=== PATIENT | female | born 1990 | race Caucasian/White ===

== ENCOUNTER 2016-11-02 17:40 | Emergency (ER) | payer SELFPAY ==
[~2016-11-02] VITALS: Ht 160 cm; Wt 52.0 kg
[2016-11-02 17:53] VITALS: Ht 160 cm; Wt 52.0 kg
[2016-11-02] MEDS ORDERED: LORA10CA PO (19:43)
--- NOTE | 2016-11-02 19:47 | ERD ---
ER Documentation Chief Complaint Date/Time DATE: 11/02/16 TIME: 19:43 Chief Complaint CHEST PAIN , SOB X 3 DAYS , 12 WEEKS PREG HPI This is a 26-year-old who is 12 weeks who complains of 2 days of runny nose with postnasal drainage and a dry cough with no fever no cramps no vaginal bleeding no back pain. No dysuria. She says her chest hurts in the anterior and posterior wall. She says it hurts when she coughs it hurts when she turns her to the deep breath. No short of breath no productive sputum no dizziness no palpitations. The pain is described as sharp better with rest ROS All systems reviewed and are negative except as per history of present illness. Medications Home Meds Active Scripts Loratadine* (Claritin*) 10 Mg Capsule, 10 MG PO DAILY, #14 CAP Prov:CHICHO BABB DO 11/02/16 Allergies Allergies: Coded Allergies: No Known Allergy (Unverified , 11/02/16) PMhx/Soc History of Surgery: No Anesthesia Reaction: No Hx Neurological Disorder: No Hx Respiratory Disorders: No Hx Cardiac Disorders: No Hx Psychiatric Problems: No Hx Miscellaneous Medical Probl: No Hx Alcohol Use: No Hx Substance Use: No Hx Tobacco Use: No FmHx Family History: No coronary disease Physical Exam Vitals Vital Signs Date Time Temp Pulse Resp B/P Pulse Ox O2 Delivery O2 Flow Rate FiO2 11/02/16 17:53 98.2 108 20 133/82 98 Physical Exam Const: Well-developed, well-nourished Head: Atraumatic, normocephalic Eyes: Normal Conjunctiva, PERRLA, EOMI, normal sclera, no nystagmus ENT: Normal External Ears, Nose and Mouth, moist mucus membranes. Neck: Full range of motion. No meningismus, no lymphadenopathy. Resp: Clear to auscultation bilaterally, no wheezing, rhonchi, rales, 100% reproducible chest wall pain to palpation to the anterior chest wall and the posterior rib cage as well. Pushing on the posterior rib cage will induce pain in the anterior ribs Cardio: Regular rate and rhythm, no murmurs, S1 S2 present Abd: Soft, non tender x 4, non distended. Normal bowel sounds, no guarding or rebound, no pulsitile abdominal masses or bruits Skin: No petechiae or rashes, no ecchymosis , no maculopapular rash Back: No midline or flank tenderness Ext: No cyanosis, or edema, FROM x 4, normal inspection, neurovascularly intact x 4 Neur: Awake and alert, STR 5/5 x 4, sensation intact x 4, no focal findings, cerebellum intact Psych: Normal Mood and Affect Procedures/MDM EKG: Rate/Rhythm: Sinus tachycardia heart rate 107 QRS, ST, QT: NORMAL [place], QRS, QT] Impression: NORMAL EKG Patient clearly has reproducible chest pain to palpation and with twisting of the trunk. I believe her pain is directly due to repetitive coughing and strained her ribs. Discussed with her home care and only to take Tylenol for pain. Departure Diagnosis: Primary Impression: URI (upper respiratory infection) URI type: unspecified viral URI Qualified Code: J06.9 - Viral upper respiratory tract infection Additional Impression: Strain of chest wall Encounter type: initial encounter Qualified Code: S29.011A - Strain of chest wall, initial encounter Condition: Stable Patient Instructions: Preventing Common Respiratory Infections, Chest Wall Strain Referrals: PHOEBE ARMSTRONG APOSTOLOS A. DO Nov 02, 2016 19:47
[2016-11-02 20:00] VITALS: BP 134/62; PULSE 106; RESP 20; TEMP 98.2
== END 2016-11-02 20:01 | disposition home or self-care (01) ==
LOC: FTE 17:40
DX: O99.511 Diseases of the respiratory system complicating pregnancy, first trimester (principal); J06.9 Acute upper respiratory infection, unspecified; O9A.211 Injury, poisoning and certain other consequences of external causes complicating pregnancy, first trimester; S29.011A Strain of muscle and tendon of front wall of thorax, initial encounter; R07.9 Chest pain, unspecified; X58.XXXA Exposure to other specified factors, initial encounter; Y92.9 Unspecified place or not applicable; Z3A.12 12 weeks gestation of pregnancy
CPT/HCPCS: 93005; 99283

== ENCOUNTER 2017-01-07 20:11 | Outpatient (CLI) | payer MEDICAID ==
[~2017-01-07] VITALS: Ht 160 cm; Wt 58.6 kg
[~2017-01-07 20:11] MED LIST: LORA10CA PO
[2017-01-07 20:22] VITALS: Ht 160 cm; Wt 58.6 kg
[2017-01-07] MEDS ORDERED: PRENAT PO (20:24)
[2017-01-07 20:33] VITALS: BP 128/65; PULSE 95; RESP 18
[2017-01-07] MEDS ORDERED: LACTATED RINGER'S 1,000 ML IV* SCH (21:00)
[2017-01-07] MEDS ORDERED: LACTATED RINGER'S 1,000 ML IV SCH (21:00)
[2017-01-07 22:32] LABS: ADD UMIC NO; URINE BILIRUBIN (Dip) NEGATIVE (NEGATIVE); URINE BLOOD (Dip) NEGATIVE (NEGATIVE); URINE COLOR LT. YELLOW (YELLOW); URINE KETONES (Dip) NEGATIVE (NEGATIVE); URINE LEUKOCYTE ESTERASE (Dip) NEGATIVE (NEGATIVE); URINE NITRITE (Dip) NEGATIVE (NEGATIVE); URINE TOTAL PROTEIN (Dip) NEGATIVE (NEGATIVE); URINE UROBILINOGEN (Dip) 0.2 E.U./dL (0.1-1.0)
--- NOTE | 2017-01-07 23:17 | RADRPT ---
PROCEDURE: Obstetrical ultrasound greater than 14 weeks CLINICAL INDICATION: labor TECHNIQUE: Real time sonographic imaging of the gravid uterus is performed transabdominally and mu ltiple static jones scale and Doppler images are submitted for review as are measurements. The image s are reviewed on the PACS. COMPARISON: No relevant exams are available FINDINGS: The cervical os is closed with a normal cervical length of 4.41 cm. There is a single living intrauterine gestation in breech presentation. The heart beat is est imated at 154 bpm. The measurements are as follows: BPD:5.03 cm HC:19.03 cm AC:15.97 cm FL:3.56 cm Estimated gestational age is 21 weeks 2 days. The estimated date of delivery is 05/18/2017. The estimated weight is 405 grams. Placenta is posterior and grade 0. There is no evidence of placenta previa or abruption. anatomic survey is performed and shows no abnormality, the three-vessel cord and cord insertio n are unremarkable. The amniotic fluid is normal, the maximum vertical pocket estimated at 5.77 cm. RPTAT:HJJR IMPRESSION: 1. Single viable intrauterine gestation estimated at 21 weeks of 2 days with the estimated date of d elivery 05/18/2017. 2. Cervical length is estimated at 4.41 cm. 3. Estimated weight of 405 g is below the 3rd percentile. 4. Posterior great 0 placenta without placenta previa or abruption. Physician Jignesh Date Time Electronically viewed and signed by Physician Jignesh on 01/07/2017 23:17 /
--- NOTE | 2017-01-07 23:28 | PN ---
Date/Time of Note Date/Time of Note DATE: 01/07/17 TIME: 22:54 OB Subjective Subjective Subjective 26 yo P2, h/o c/d x 2, c/o ctx, now feeling better OB Objective Objective Objective VS: nml Abdomen- gravid, n/t Sono- 21 wks gestation, cervical length 4.5cm, pos FH Abdomen: WNL Contractions on Admission: None OB Assessment/Plan Other Assessment: 26 yo P2 @ 21 wks, w abdominal pain, now resolved Other plan: patient is feeling better, not in PTL d/c home f/u w provider on Monday CHRISTIN RAMEY MD Jan 07, 2017 23:22
--- NOTE | 2017-01-08 00:21 | TRIAGE ---
OB Triage Datetime Report Generated by CPN: 01/08/2017 00:21 Datetime: 01/07/2017 23:33 Stage of : OB Triage Labor Evaluation Frequency: X1 Monitor Mode: External Duration (sec)2399: 40 Resting Tone [place]: Relaxed Pain Presence: None/Denies Pain Type: N/A Datetime: 01/07/2017 23:28 Stage of : OB Triage Datetime: 01/07/2017 22:30 Stage of : OB Triage Labor Evaluation Frequency: 3-8 Monitor Mode: External Duration (sec)2399: 40-80 Quality: Mild Resting Tone [place]: Relaxed Pain Assessment Pain Scale: 3 Pain Presence: Intermittent Pain Type: Cramping Pain Location: Abdomen Datetime: 01/07/2017 22:25 Stage of : OB Triage Datetime: 01/07/2017 22:14 Stage of : OB Triage Datetime: 01/07/2017 21:30 Stage of : OB Triage Labor Evaluation Frequency: 4-8 Monitor Mode: External Duration (sec)2399: 50-90 Quality: Mild Resting Tone [place]: Relaxed Pain Assessment Pain Scale: 5 Pain Presence: Intermittent Pain Type: Cramping Pain Location: Abdomen Pain Relief Measures: Comfort Measures Datetime: 01/07/2017 20:43 Stage of : OB Triage Datetime: 01/07/2017 20:33 Assessment Type: Triage Maternal Assessment Level of Consciousness: Fully Conscious DTR's/Clonus: DTRs 2+; No Clonus Headache: Generalized Blurred Vision: No Respiratory Effort: Unlabored Breath Sounds, Left: Clear and Equal Breath Sounds, Right: Clear and Equal Nausea/Vomiting: Denies RUQ Epigastric Pain: Denies Lower Extremities Edema: None Degree: None Upper Extremities Edema: None Degree: None Facial Edema: None Fall Risk Assessment History of Falling: (0) No Secondary Diagnosis: (15) Yes (Annotations: C/S X2 PTD X1 AT 34 WKS) Ambulatory Aid: (0) Bedrest/Nurse Assist IV Therapy: (0) No Gait: (0) Normal/Bedrest/Immobile Mental Status: (0) Oriented to Own Ability Fall Score: 15 Fall Risk Score Definition: No Risk: No action required Datetime: 01/07/2017 20:23 Monitor Mode: External Datetime: 01/07/2017 20:22 Heart Rate Monitor Mode: Doppler Comments: FHTs x 1 minute, audible from 137 -158 bts/min Datetime: 01/07/2017 20:20 EGA: 23.5 Datetime: 01/07/2017 20:15 Time of Arrival: 01/07/2017 20:00 Arrived By: Wheelchair Arrived From: Home Chief Complaint: Cramping since 1800 Contractions: Irregular Time Contractions Began: 01/07/2017 18:00 Rupture of Membranes: Denies Vaginal Bleeding: None Vaginal Discharge: Denies Recent Sexual Intercouse: Denies Abdominal Trauma: Not Applicable Patient Complaints: Cramping Provider Notified: RAMEY Initial Plan: VS, DOPPLER, TOCO, IV HYDRATION, EFW, JESSI MVP, CL
== END 2017-01-07 23:48 | disposition home or self-care (01) ==
LOC: OBT 20:11 → L-D 20:14 → OBT 23:48
PROVIDERS: ATTEND Obstetrics & Gynecology
DX: O60.02 Preterm labor without delivery, second trimester (principal); Z3A.23 23 weeks gestation of pregnancy
CPT/HCPCS: 76815; 76817; 81003; J7120; 36415; 96360; 96361; G0463

== ENCOUNTER 2017-03-10 20:47 | Outpatient (CLI) | payer MEDICAID ==
[~2017-03-10] VITALS: Ht 160 cm; Wt 62.3 kg
[~2017-03-10 20:47] MED LIST changes: -LORA10CA PO; +PRENAT PO
[2017-03-10 21:28] VITALS: BP 121/69; PULSE 88; RESP 18
[2017-03-10 21:46] LABS: ADD UMIC NO; URINE BILIRUBIN (Dip) NEGATIVE (NEGATIVE); URINE BLOOD (Dip) NEGATIVE (NEGATIVE); URINE COLOR LT. YELLOW (YELLOW); URINE KETONES (Dip) TRACE (NEGATIVE); URINE LEUKOCYTE ESTERASE (Dip) NEGATIVE (NEGATIVE); URINE NITRITE (Dip) NEGATIVE (NEGATIVE); URINE TOTAL PROTEIN (Dip) NEGATIVE (NEGATIVE); URINE UROBILINOGEN (Dip) 0.2 E.U./dL (0.1-1.0)
[2017-03-10 22:02] LABS: ADD SCAN DIFF NO
[2017-03-10 22:05] LABS: BASOPHIL # 0.1 10^3/ul (0.0-0.1); BASOPHILS % 0.5 % (0.0-2.0); EOSINOPHILS # 0.5 10^3/ul (0.0-0.5); EOSINOPHILS % 4.8 % (0.0-7.0); HEMOGLOBIN 12.3 g/dl (12.0-16.0); LYMPHOCYTES # 2.6 10^3/ul (0.8-2.9); LYMPHOCYTES % 23.8 % (15.0-51.0); MEAN CORPUSCULAR HEMOGLOBIN 32.6 pg (29.0-33.0); MEAN CORPUSCULAR HGB CONC 35.1 g/dl (32.0-37.0); MEAN CORPUSCULAR VOLUME 92.8 fl (82.0-101.0); MEAN PLATELET VOLUME 9.2 fl (7.4-10.4); MONOCYTES % 8.9 % (0.0-11.0); NEUTROPHIL # 6.6 10^3/ul (1.6-7.5); NEUTROPHILS % 61.2 % (39.0-77.0); PLATELET COUNT 266 10^3/UL (140-415); RED BLOOD COUNT 3.77 10^6/ul (4.20-5.40); RED CELL DISTRIBUTION WIDTH 12.8 % (11.5-14.5); WHITE BLOOD COUNT 10.8 10^3/ul (4.8-10.8)
--- NOTE | 2017-03-10 22:27 | RADRPT ---
PROCEDURE: Obstetrical ultrasound CLINICAL INDICATION: Pre-term labor. TECHNIQUE: Tuttle-scale sonographic images of the uterus and cervix. Transvaginal examination. COMPARISON: 01/07/2017 FINDINGS: The cervix is closed with a length of 4.9 cm. IMPRESSION: The cervix is closed with a length of 4.9 cm. RPTAT: AADD .Kodak Obrien MD, MD Date Time Electronically viewed and signed by .Kodak Obrien MD, on 03/10/2017 22:26 .B/
--- NOTE | 2017-03-10 22:27 | RADRPT ---
PROCEDURE: Obstetrical ultrasound. CLINICAL INDICATION: , evaluation. Pelvic pain. TECHNIQUE: Transabdominal sonographic images of the pelvis are obtained. COMPARISON: 01/07/2017 FINDINGS: Single intrauterine gestation. There is a cephalic presentation. Measurements were made in order to determine age. The results are as follows: BPD = 7.63 cm HC = 27.43 cm AC = 26.17 cm FL = 5.75 cm Heart rate = 165 beats per minute The placenta is fundal - posterior. There is no evidence for an abruption or placenta previa. Ovaries are not visualized. IMPRESSION: Single intrauterine gestation of approximately 30 weeks 2 days by ultrasound criteria. [place] estimated weight = 1534 g; 45 percentile for gestational age of 30 weeks 0 days. RPTAT: AADD .Kodak Obrien MD, Date Time Electronically viewed and signed by .Kodak Obrien MD, MD on 03/10/2017 22:27 .B/
--- NOTE | 2017-03-10 23:41 | RADRPT ---
PROCEDURE: OB ultrasound for biophysical profile CLINICAL INDICATION: Biophysical profile. . TECHNIQUE: Multiple sonographic images of the pelvis were obtained. Transabdominal views are obta ined. COMPARISON: OB ultrasound 01/07/2017 FINDINGS: Single intrauterine gestation. Presentation: Cephalic. Placenta: Posterior No evidence of placental abruption. No evidence of placenta previa. breathing movement = 2/2 tone = 2/2 motion = 2/2 JESSI = 2/2 JESSI = 15.8 cm heart rate: 165 beats per minute IMPRESSION: Single intrauterine gestation. Biophysical profile 05/30 RPTAT: AADD .Kodak Obrien MD, MD Date Time Electronically viewed and signed by .Kodak Obrien MD, on 03/10/2017 23:41 .B/
--- NOTE | 2017-03-11 00:13 | QN ---
Documentation Comment OB triage: 32+wks for r/o labor +FM No LOF No CTXs No VB Neg FFN CXL>4cm --->discharged with instructions -->clotrimazole vaginal cream given --->F/u with PMD EMERY LUCIANO M.D. March 11, 2017 00:13
--- NOTE | 2017-03-11 01:09 | TRIAGE ---
OB Triage Datetime Report Generated by CPN: 03/11/2017 01:09 Datetime: 03/10/2017 21:40 Stage of : OB Triage Labor Evaluation Frequency: 2-6 Monitor Mode: External Quality: Mild Pattern: Normal: <= 5 Contractions in 10 Minutes Resting Tone [place]: Relaxed Heart Rate FHR Baseline Rate: 145 Monitor Mode: External US FHR Baseline Changes: No Baseline Change Variability: Moderate 6-25 bpm Accelerations: 15X15 Decelerations: None Category: Category I Vaginal Exam Membrane Status: Intact Datetime: 03/10/2017 21:16 Time of Arrival: 03/10/2017 20:45 EGA: 32.4 Arrived By: Wheelchair Arrived From: Home Chief Complaint: w/ hx PTL and PTD at 34 wks to OB triage w/ c/o RLQ pain and UTI s/s Movement: Present Contractions: Occasional Time Contractions Began: 03/10/2017 11:00 Rupture of Membranes: Denies Vaginal Bleeding: None Vaginal Discharge: Denies Recent Sexual Intercouse: Denies Abdominal Trauma: Not Applicable Patient Complaints: Urinary Frequency; Pain on Urination Time Provider Notified: 03/10/2017 21:10 Provider Notified: Dr Bond Initial Plan: EFM, FFN, CVL,BPP,UA,CBC Datetime: 03/10/2017 21:14 Vaginal Exam Membrane Status: Intact Datetime: 03/10/2017 21:10 Stage of : OB Triage Monitor Mode: External Quality: Mild Pattern: Normal: <= 5 Contractions in 10 Minutes Resting Tone [place]: Relaxed Heart Rate FHR Baseline Rate: 150 Monitor Mode: External US FHR Baseline Changes: No Baseline Change Variability: Moderate 6-25 bpm Accelerations: 15X15 Decelerations: Variable Category: Category II Datetime: 03/10/2017 21:01 Stage of : OB Triage Maternal Assessment Level of Consciousness: Fully Conscious Headache: Denies Blurred Vision: No Respiratory Effort: Unlabored Nausea/Vomiting: Denies RUQ Epigastric Pain: Denies Facial Edema: None Labor Evaluation Frequency: placed Monitor Mode: External Resting Tone [place]: Relaxed Monitor Mode: External US Comments: FHT 150 Pain Assessment Pain Scale: 7 Pain Presence: Intermittent Pain Type: Cramping Pain Location: Abdomen Datetime: 01/07/2017 22:38 Stage of : OB Triage Datetime: 01/07/2017 20:33 Fall Risk Assessment Fall Score: 15 Fall Risk Score Definition: No Risk: No action required Datetime: 01/07/2017 20:20 EGA: 23.5
== END 2017-03-11 00:15 | disposition home or self-care (01) ==
LOC: OBT 20:47 → L-D 20:47 → OBT 03-11 00:15
PROVIDERS: ATTEND Obstetrics & Gynecology
DX: O26.893 Other specified pregnancy related conditions, third trimester (principal); Z3A.32 32 weeks gestation of pregnancy
CPT/HCPCS: 36415; 76817; 76818; 81003; 82731; 85025; G0463

== ENCOUNTER 2017-04-06 10:57 | Outpatient (CLI) | payer MEDICAID ==
[~2017-04-06] VITALS: Ht 157.5 cm; Wt 63.8 kg
[2017-04-06 11:30] VITALS: BP 116/59; PULSE 93; RESP 19; Ht 157.5 cm; Wt 63.8 kg
[2017-04-06] MEDS ORDERED: LACTATED RINGER'S 1,000 ML IV ONE (12:00)
[2017-04-06] MEDS ORDERED: TERBUTALINE 1 ML ONE (12:08)
[2017-04-06] MEDS ORDERED: TERBUTALINE 1 MG/ML INJ SC ONE (12:30)
--- NOTE | 2017-04-06 13:00 | RADRPT ---
PROCEDURE: OB ultrasound for biophysical profile CLINICAL INDICATION: Poor tone. TECHNIQUE: Multiple sonographic images of the pelvis were obtained. Transabdominal views of the g ravid uterus are available for review. The images were reviewed on a PACS workstation. COMPARISON: None FINDINGS: breathing movement = 2/2 tone = 2/2 motion = 2/2 JESSI = 2/2 JESSI = 16.0 cm Single live intrauterine with cardiac activity of 144 bpm. position is cephal ic. The placenta is posterior. IMPRESSION: 1. Single live intrauterine gestation. 2. Biophysical profile = 8/8. 3. JESSI = 16.0 cm. RPTAT: HH .Malena Hutchinson MD, MD Date Time Electronically viewed and signed by .Malena Hutchinson MD, on 04/06/2017 13:00 .G/
--- NOTE | 2017-04-06 13:28 | TRIAGE ---
OB Triage Datetime Report Generated by CPN: 04/06/2017 13:27 Datetime: 04/06/2017 13:20 Stage of : OB Triage Maternal Assessment Level of Consciousness: Fully Conscious DTR's/Clonus: DTRs 1+ Headache: Denies Breath Sounds, Left: Clear and Equal Breath Sounds, Right: Clear and Equal Nausea/Vomiting: Denies RUQ Epigastric Pain: Denies Labor Evaluation Frequency: NONE Monitor Mode: External Resting Tone [place]: Relaxed Heart Rate FHR Baseline Rate: 145 Monitor Mode: External [place] Variability: Moderate 6-25 bpm Accelerations: 15X15 Decelerations: None Pain Assessment Pain Scale: 0 Pain Presence: None/Denies Pain Type: N/A Pain Goal: 3 Vaginal Exam Membrane Status: Intact Datetime: 04/06/2017 13:00 Maternal Assessment Level of Consciousness: Fully Conscious DTR's/Clonus: DTRs 1+ Headache: Denies Blurred Vision: No Respiratory Effort: Unlabored Breath Sounds, Left: Clear and Equal Breath Sounds, Right: Clear and Equal Nausea/Vomiting: Denies RUQ Epigastric Pain: Denies Facial Edema: None Labor Evaluation Frequency: NONE Monitor Mode: External Resting Tone [place]: Relaxed Heart Rate FHR Baseline Rate: 145 Monitor Mode: External [place] Variability: Moderate 6-25 bpm Accelerations: 15X15 Decelerations: None Category: Category I Pain Assessment Pain Scale: 0 Pain Presence: None/Denies Pain Type: N/A Pain Goal: 3 Vaginal Exam Membrane Status: Intact Datetime: 04/06/2017 12:00 Stage of : OB Triage Maternal Assessment Level of Consciousness: Fully Conscious DTR's/Clonus: DTRs 1+ Headache: Denies Breath Sounds, Left: Clear and Equal Breath Sounds, Right: Clear and Equal Nausea/Vomiting: Denies RUQ Epigastric Pain: Denies Labor Evaluation Frequency: 2-5 Monitor Mode: External Duration (sec)2399: 40-60 Quality: Mild Pattern: Normal: <= 5 Contractions in 10 Minutes Resting Tone [place]: Relaxed Heart Rate FHR Baseline Rate: 140 Monitor Mode: External [place] Variability: Moderate 6-25 bpm Accelerations: 15X15 Decelerations: None Category: Category I Pain Assessment Pain Scale: 4 Pain Presence: Intermittent Pain Type: Contraction Pain Location: Back Pain Goal: 3 Pain Relief Measures: Comfort Measures Vaginal Exam Membrane Status: Intact Datetime: 04/06/2017 11:42 Maternal Assessment Level of Consciousness: Fully Conscious DTR's/Clonus: DTRs 1+ Headache: Denies Blurred Vision: No Respiratory Effort: Unlabored Breath Sounds, Left: Clear and Equal Breath Sounds, Right: Clear and Equal Nausea/Vomiting: Denies RUQ Epigastric Pain: Denies Facial Edema: None Labor Evaluation Frequency: 1-5 Monitor Mode: External Duration (sec)2399: 40-60 Quality: Mild Pattern: Normal: <= 5 Contractions in 10 Minutes Resting Tone [place]: Relaxed Heart Rate FHR Baseline Rate: 140 Monitor Mode: External [place] Variability: Moderate 6-25 bpm Accelerations: 15X15 Decelerations: None Category: Category I Pain Assessment Pain Scale: 6 Pain Presence: Intermittent Pain Type: Contraction Pain Location: Back Pain Goal: 3 Pain Relief Measures: Comfort Measures Vaginal Exam Membrane Status: Intact Datetime: 04/06/2017 11:31 Maternal Assessment Level of Consciousness: Fully Conscious DTR's/Clonus: DTRs 1+ Headache: Denies Blurred Vision: No Respiratory Effort: Unlabored Breath Sounds, Left: Clear and Equal Breath Sounds, Right: Clear and Equal Nausea/Vomiting: Denies RUQ Epigastric Pain: Denies Facial Edema: None Labor Evaluation Frequency: 1-5 Monitor Mode: External Duration (sec)2399: 40-70 Quality: Mild Pattern: Normal: <= 5 Contractions in 10 Minutes Resting Tone [place]: Relaxed Heart Rate FHR Baseline Rate: 135 Monitor Mode: External [place] Variability: Moderate 6-25 bpm Accelerations: 15X15 Decelerations: None Category: Category I Pain Assessment Pain Scale: 6 Pain Presence: Intermittent Pain Type: Contraction Pain Location: Back Pain Goal: 3 Pain Relief Measures: Pain Medication Given Vaginal Exam Membrane Status: Intact Datetime: 04/06/2017 10:53 Time of Arrival: 04/06/2017 10:53 EGA: 36.3 Arrived By: Ambulatory Arrived From: Office Chief Complaint: PT CAME IN C/O UC'S SINCE MONDAY AM Movement: Present Contractions: Denies/Absent Rupture of Membranes: Denies Vaginal Discharge: Denies Recent Sexual Intercouse: Denies Abdominal Trauma: Not Applicable Additional Patient Complaints: MONITOR Time Provider Notified: 04/06/2017 11:15 Provider Notified: [facility] Initial Plan: MONITOR, VE, IV HYDRATION, TERBUTALINE AND BPP Datetime: 03/11/2017 00:08 Stage of : OB Triage Datetime: 03/11/2017 00:00 Stage of : OB Triage Monitor Mode: External Quality: Mild Pattern: Normal: <= 5 Contractions in 10 Minutes Resting Tone [place]: Relaxed Heart Rate FHR Baseline Rate: 140 Monitor Mode: External US FHR Baseline Changes: No Baseline Change Variability: Moderate 6-25 bpm Accelerations: 15X15 Decelerations: None Category: Category I Datetime: 03/10/2017 23:23 Monitor Mode: External Quality: Mild Pattern: Normal: <= 5 Contractions in 10 Minutes Resting Tone [place]: Relaxed Heart Rate FHR Baseline Rate: 135 Monitor Mode: External US FHR Baseline Changes: No Baseline Change Variability: Moderate 6-25 bpm Accelerations: 15X15 Decelerations: None Category: Category I Datetime: 03/10/2017 22:30 Stage of : OB Triage Heart Rate FHR Baseline Rate: 140 Monitor Mode: External US FHR Baseline Changes: No Baseline Change Variability: Moderate 6-25 bpm Accelerations: 15X15 Decelerations: None Category: Category I Datetime: 03/10/2017 21:16 EGA: 32.4 Datetime: 01/07/2017 20:33 Fall Risk Assessment Fall Score: 15 Fall Risk Score Definition: No Risk: No action required Datetime: 01/07/2017 20:20 EGA: 23.5
--- NOTE | 2017-04-06 14:08 | PN ---
Triage Information Date/Time Weeks of Gestation 3 para 2 at 36.3 days of gestation who presents with contractions : 3 Para: 2 Diabetes: none Hypertention: none Additional information R/O PTL Objective Vital Signs Date Time Temp Pulse Resp B/P Pulse Ox O2 Delivery O2 Flow Rate FiO2 04/06/17 11:30 98.4 93 19 116/59 99 Room Air Heart Rate: 140's Heart Rate Comments reactive Contractions: >10 Minutes Apart Exam cervix closed Results/Medications Imaging Results PROCEDURE: OB ultrasound for biophysical profile CLINICAL INDICATION: Poor tone. TECHNIQUE: Multiple sonographic images of the pelvis were obtained. Transabdominal views of the gravid uterus are available for review. The images were reviewed on a PACS workstation. COMPARISON: None FINDINGS: breathing movement = 2/2 tone = 2/2 motion = 2/2 JESSI = 2/2 JESSI = 16.0 cm Single live intrauterine with cardiac activity of 144 bpm. position is cephalic. The placenta is posterior. IMPRESSION: 1. Single live intrauterine gestation. 2. Biophysical profile = 8/8. 3. JESSI = 16.0 cm. RPTAT: HH .Malena Hutchinson MD, MD Date Time Electronically viewed and signed by .Malena Hutchinson MD, MD on 04/06/2017 13 :00 .G/ CC: VENUS SURESH MD Assessment/Plan Patient received IV fluid Status post terbutaline 1 dose BPP and JESSI wnl DC home today Patient should return for NST and biophysical profile within 2 days MARLON DORAN MD Apr 06, 2017 14:08
[2017-04-07] MEDS ORDERED: PROG100C5 VAGINAL (19:05)
== END 2017-04-06 13:30 | disposition home or self-care (01) ==
LOC: OBT 10:57 → L-D 10:57 → OBT 13:30
PROVIDERS: ATTEND Obstetrics & Gynecology
DX: O62.9 Abnormality of forces of labor, unspecified (principal); Z3A.36 36 weeks gestation of pregnancy
CPT/HCPCS: 36415; 76818; 96372; J3105; J7120; Z7500; G0463

== ENCOUNTER 2017-04-07 18:36 | Outpatient (CLI) | payer MEDICAID ==
[~2017-04-07] VITALS: Ht 158.8 cm; Wt 64.0 kg
[2017-04-07 19:00] VITALS: BP 107/60; PULSE 96; RESP 18
[2017-04-07] MEDS ORDERED: PROG100C5 VAGINAL (19:05)
[2017-04-07] MEDS ORDERED: TERBUTALINE 1 ML ONE (19:58)
[2017-04-07] MEDS ORDERED: LACTATED RINGER'S 1,000 ML IV ONE (20:00)
[2017-04-07] MEDS ORDERED: TERBUTALINE 1 MG/ML INJ SC ONE (20:00)
[2017-04-07] MEDS ORDERED: LACTATED RINGER'S 1,000 ML IV SCH (20:00)
--- NOTE | 2017-04-07 23:04 | QN ---
Documentation Comment iup 34 weeks co ucx vss exam wnl catr I tracing a/p iup 34 weeks false labor dc [place] AL BROWNLEE MD Apr 07, 2017 23:04
--- NOTE | 2017-04-08 08:09 | TRIAGE ---
OB Triage Datetime Report Generated by CPN: 04/08/2017 08:08 Datetime: 04/07/2017 19:09 Labor Evaluation Frequency: 3-6 Monitor Mode: External Duration (sec)2399: 50-150 Quality: Mild Pattern: Normal: <= 5 Contractions in 10 Minutes Resting Tone [place]: Relaxed Heart Rate FHR Baseline Rate: 145 Monitor Mode: External US FHR Baseline Changes: No Baseline Change Variability: Moderate 6-25 bpm Accelerations: 15X15 Decelerations: Variable Datetime: 04/07/2017 19:08 Pain Assessment Pain Scale: 8 Pain Presence: Intermittent Pain Type: Contraction Pain Location: Abdomen Datetime: 04/07/2017 18:56 Time of Arrival: 04/07/2017 18:33 EGA: 34.2 Arrived By: Ambulatory Arrived From: Home Chief Complaint: CONTRACTIONS, STARTING AT 0900, 5/HOUR, PAIN LEVEL 6/10 Movement: Present Contractions: Regular Time Contractions Began: 04/07/2017 09:00 Contractions: 5 PER HOUR Rupture of Membranes: Denies Vaginal Bleeding: None Vaginal Discharge: Denies Abdominal Trauma: Not Applicable Patient Complaints: Contractions Time Provider Notified: 04/07/2017 19:45 Provider Notified: Dr Loredo Initial Plan: EFM x2 Datetime: 04/07/2017 18:51 Stage of : OB Triage Assessment Type: Triage Maternal Assessment Level of Consciousness: Fully Conscious Headache: Denies Blurred Vision: No Respiratory Effort: Unlabored; Regular Rhythm; Equal Expansion Breath Sounds, Left: Clear and Equal Breath Sounds, Right: Clear and Equal Nausea/Vomiting: Denies RUQ Epigastric Pain: Denies Lower Extremities Edema: None Degree: None Upper Extremities Edema: None Degree: None Facial Edema: None Temperature Route: Oral Fall Risk Assessment History of Falling: (0) No Secondary Diagnosis: (0) No Ambulatory Aid: (0) Bedrest/Nurse Assist IV Therapy: (0) No Gait: (0) Normal/Bedrest/Immobile Mental Status: (0) Oriented to Own Ability Fall Score: 0 Fall Risk Score Definition: No Risk: No action required Pain Assessment Pain Scale: 6 Pain Presence: Intermittent Pain Type: Contraction Pain Location: Abdomen Datetime: 04/06/2017 10:53 EGA: 34.1 Datetime: 03/10/2017 21:16 EGA: 30.2 Datetime: 01/07/2017 20:33 Fall Score: 15 Fall Risk Score Definition: No Risk: No action required Datetime: 01/07/2017 20:20 EGA: 21.3
== END 2017-04-07 22:20 | disposition home or self-care (01) ==
LOC: OBT 18:36 → L-D 18:37 → OBT 22:20
PROVIDERS: ATTEND Obstetrics & Gynecology
DX: O47.03 False labor before 37 completed weeks of gestation, third trimester (principal); Z3A.34 34 weeks gestation of pregnancy
CPT/HCPCS: 36415; 96360; 96361; 96372; J3105; J7120; Z7500; G0463

== ENCOUNTER 2017-04-12 18:16 | Outpatient (CLI) | payer MEDICAID ==
[~2017-04-12] VITALS: Ht 157.5 cm; Wt 64.3 kg
[~2017-04-12 18:16] MED LIST changes: +PROG100C5 VAGINAL
[2017-04-12 18:42] VITALS: Ht 157.5 cm; Wt 64.3 kg
[2017-04-12 18:43] VITALS: BP 114/67; PULSE 94; RESP 18
[2017-04-12] MEDS ORDERED: LACTATED RINGER'S 1,000 ML IV* SCH (19:00)
[2017-04-12] MEDS ORDERED: TERBUTALINE 1 MG/ML INJ SC ONE ×2 (19:00→21:00)
[2017-04-12 20:13] LABS: ADD SCAN DIFF NO
[2017-04-12 20:16] LABS: BASOPHILS % 0.4 % (0.0-2.0); EOSINOPHILS # 0.5 10^3/ul (0.0-0.5); EOSINOPHILS % 5.1 % (0.0-7.0); HEMATOCRIT 35.8 % (37.0-47.0); HEMOGLOBIN 12.4 g/dl (12.0-16.0); LYMPHOCYTES # 2.1 10^3/ul (0.8-2.9); LYMPHOCYTES % 22.1 % (15.0-51.0); MEAN CORPUSCULAR HEMOGLOBIN 31.9 pg (29.0-33.0); MEAN CORPUSCULAR HGB CONC 34.6 g/dl (32.0-37.0); MEAN PLATELET VOLUME 9.9 fl (7.4-10.4); MONOCYTE # 0.8 10^3/ul (0.3-0.9); MONOCYTES % 8.7 % (0.0-11.0); NEUTROPHIL # 6.1 10^3/ul (1.6-7.5); NEUTROPHILS % 62.8 % (39.0-77.0); PLATELET COUNT 303 10^3/UL (140-415); RED BLOOD COUNT 3.89 10^6/ul (4.20-5.40); RED CELL DISTRIBUTION WIDTH 13.1 % (11.5-14.5); WHITE BLOOD COUNT 9.7 10^3/ul (4.8-10.8)
[2017-04-12 20:36] LABS: PARTIAL THROMBOPLASTIN TIME 24.7 Sec (25.0-35.0); PROTIME 13.2 Sec (12.2-14.2)
--- NOTE | 2017-04-12 22:27 | PN ---
Triage Information Date/Time Weeks of Gestation Patient is 3 para 2 at 35 weeks of gestation with history of 2 prior C- sections (History of delivery 1) She presents with contractions Patient has been on progesterone daily for history of delivery : 3 Para: 2 Diabetes: none Hypertention: none Objective Vital Signs Date Time Temp Pulse Resp B/P Pulse Ox O2 Delivery O2 Flow Rate FiO2 04/12/17 18:43 98.7 94 18 114/67 96 Room Air Heart Rate: 140's Heart Rate Comments Reactive Contractions: 6-10 Minutes Apart Exam Cervix per nurse closed Results/Medications Result Diagram: 04/12/171914 Results 24 hrs Laboratory Tests Test 04/12/17 19:15 White Blood Count 9.7 Red Blood Count 3.89 L Hemoglobin 12.4 Hematocrit 35.8 L Mean Corpuscular Volume 92.0 Mean Corpuscular Hemoglobin 31.9 Mean Corpuscular Hemoglobin Concent 34.6 Red Cell Distribution Width 13.1 Platelet Count 303 Mean Platelet Volume 9.9 Neutrophils % 62.8 Lymphocytes % 22.1 Monocytes % 8.7 Eosinophils % 5.1 Basophils % 0.4 Nucleated Red Blood Cells % 0.0 Neutrophils # 6.1 Lymphocytes # 2.1 Monocytes # 0.8 Eosinophils # 0.5 Basophils # 0.0 Nucleated Red Blood Cells # 0.0 Prothrombin Time 13.2 Prothrombin Time Ratio 1.0 INR International Normalized Ratio 1.00 Activated Partial Thromboplast Time 24.7 L Medications Current Medications Lactated Ringer's (Lr) 1,000 ml @ 125 mls/hr Q8H IV* Last administered on 04/12t 19:15; Admin Dose 125 MLS/HR; Start 04/12/17 at 19:00 Assessment/Plan Patient had 35 weeks of gestation with contractions IV fluids and terbutaline was given Patient is no longer oscar Will be discharged home Patient should follow-up with [facility] in 2-3 days MARLON DORAN MD Apr 12, 2017 22:27
--- NOTE | 2017-04-12 22:33 | TRIAGE ---
OB Triage Datetime Report Generated by CPN: 04/12/2017 22:33 Datetime: 04/12/2017 22:00 Stage of : OB Triage Labor Evaluation Frequency: X2/HR Monitor Mode: External Duration (sec)2399: 60-120 Quality: Moderate Pattern: Normal: <= 5 Contractions in 10 Minutes Resting Tone [place]: Relaxed Heart Rate FHR Baseline Rate: 135 Monitor Mode: External US Variability: Moderate 6-25 bpm Accelerations: 15X15 Decelerations: None Category: Category I Pain Presence: None/Denies Datetime: 04/12/2017 21:15 Stage of : OB Triage Labor Evaluation Frequency: X2/HR Monitor Mode: External Duration (sec)2399: 60-120 Quality: Moderate Pattern: Normal: <= 5 Contractions in 10 Minutes Resting Tone [place]: Relaxed Heart Rate FHR Baseline Rate: 135 Monitor Mode: External US Variability: Moderate 6-25 bpm Accelerations: 15X15 Decelerations: None Category: Category I Pain Assessment Pain Scale: 3 Pain Presence: Intermittent Pain Type: Cramping Pain Location: Abdomen Pain Relief Measures: Comfort Measures Datetime: 04/12/2017 20:15 Stage of : OB Triage Labor Evaluation Frequency: X2/HR Monitor Mode: External Duration (sec)2399: 60-120 Quality: Moderate Pattern: Normal: <= 5 Contractions in 10 Minutes Resting Tone [place]: Relaxed Heart Rate FHR Baseline Rate: 130 Monitor Mode: External US Variability: Moderate 6-25 bpm Accelerations: 15X15 Decelerations: None Category: Category I Pain Assessment Pain Scale: 3 Pain Presence: Intermittent Pain Type: Cramping Pain Location: Abdomen Pain Relief Measures: Comfort Measures Datetime: 04/12/2017 19:15 Stage of : OB Triage Temperature Route: Oral Labor Evaluation Frequency: 3-7 Monitor Mode: External Duration (sec)2399: 60-180 Quality: Moderate Pattern: Normal: <= 5 Contractions in 10 Minutes Resting Tone [place]: Relaxed Heart Rate FHR Baseline Rate: 135 Monitor Mode: External US Variability: Moderate 6-25 bpm Accelerations: 15X15 Decelerations: None Category: Category I Pain Assessment Pain Scale: 7 Pain Presence: Intermittent Pain Type: Cramping Pain Location: Abdomen Pain Relief Measures: Comfort Measures Datetime: 04/12/2017 18:48 Vaginal Exam Dilatation (cms): 0.0 Exam By: KHEMANI Datetime: 04/12/2017 18:40 Assessment Type: Triage Maternal Assessment Level of Consciousness: Fully Conscious DTR's/Clonus: DTRs 2+; No Clonus Headache: Denies Blurred Vision: No Respiratory Effort: Unlabored; Regular Rhythm; Equal Expansion Breath Sounds, Left: Clear and Equal Breath Sounds, Right: Clear and Equal Nausea/Vomiting: Denies RUQ Epigastric Pain: Denies Lower Extremities Edema: None Degree: None Upper Extremities Edema: None Degree: None Facial Edema: None Fall Risk Assessment History of Falling: (0) No Secondary Diagnosis: (0) No Ambulatory Aid: (0) Bedrest/Nurse Assist IV Therapy: (0) No Gait: (0) Normal/Bedrest/Immobile Mental Status: (0) Oriented to Own Ability Fall Score: 0 Fall Risk Score Definition: No Risk: No action required Datetime: 04/12/2017 18:38 Time of Arrival: 04/12/2017 18:15 EGA: 35.0 Arrived By: Ambulatory Arrived From: Home Chief Complaint: C/O UC'S Movement: Present Contractions: Denies/Absent Time Contractions Began: 04/12/2017 07:00 Rupture of Membranes: Denies Vaginal Bleeding: None Vaginal Discharge: Denies Recent Sexual Intercouse: Denies Abdominal Trauma: Not Applicable Patient Complaints: Contractions; Cramping; Back Pain Time Provider Notified: 04/12/2017 18:56 Provider Notified: DEMETRICE Initial Plan: EFM, SVE, IV HYDRATION, NPO Datetime: 04/12/2017 18:36 Monitor Mode: External Monitor Mode: External US Datetime: 04/07/2017 21:59 Stage of : OB Triage Monitor Mode: External Quality: Mild Pattern: Normal: <= 5 Contractions in 10 Minutes Resting Tone [place]: Relaxed Heart Rate FHR Baseline Rate: 140 Monitor Mode: External US FHR Baseline Changes: No Baseline Change Variability: Moderate 6-25 bpm Accelerations: 15X15 Decelerations: None Category: Category I Pain Assessment Pain Scale: 0 Pain Presence: None/Denies Pain Type: N/A Datetime: 04/07/2017 20:54 Stage of : OB Triage Quality: Mild Pattern: Normal: <= 5 Contractions in 10 Minutes Resting Tone [place]: Relaxed Pain Assessment Pain Scale: 2 Pain Presence: Intermittent Pain Location: Abdomen Datetime: 04/07/2017 20:11 Stage of : OB Triage Monitor Mode: External Quality: Moderate Pattern: Normal: <= 5 Contractions in 10 Minutes Resting Tone [place]: Relaxed Heart Rate FHR Baseline Rate: 135 Monitor Mode: External US FHR Baseline Changes: No Baseline Change Variability: Moderate 6-25 bpm Accelerations: 15X15 Decelerations: None Category: Category I Datetime: 04/07/2017 19:45 Stage of : OB Triage Labor Evaluation Frequency: 2-5 Monitor Mode: External Duration (sec)2399: 60-100 Quality: Moderate Pattern: Normal: <= 5 Contractions in 10 Minutes Resting Tone [place]: Relaxed Heart Rate FHR Baseline Rate: 140 Monitor Mode: External US FHR Baseline Changes: No Baseline Change Variability: Moderate 6-25 bpm Accelerations: 15X15 Decelerations: None Category: Category I Datetime: 04/07/2017 18:56 EGA: 34.2 Datetime: 04/07/2017 18:51 Fall Score: 0 Fall Risk Score Definition: No Risk: No action required Datetime: 04/06/2017 10:53 EGA: 34.1 Datetime: 03/10/2017 21:16 EGA: 30.2 Datetime: 01/07/2017 20:33 Fall Score: 15 Fall Risk Score Definition: No Risk: No action required Datetime: 01/07/2017 20:20 EGA: 21.3
== END 2017-04-12 22:22 | disposition home or self-care (01) ==
LOC: L-D 18:16 → OBT 18:16
PROVIDERS: ATTEND Obstetrics & Gynecology
DX: O47.03 False labor before 37 completed weeks of gestation, third trimester (principal); O09.213 Supervision of pregnancy with history of pre-term labor, third trimester; Z3A.35 35 weeks gestation of pregnancy
CPT/HCPCS: 85025; 85610; 85730; 86592; J3105; J7120; 36415; 96360; 96361; 96372; G0463

== ENCOUNTER 2017-04-20 10:49 | Inpatient (IN) | payer MEDICAID ==
[2017-04-20] VITALS (7 sets, daily range): BP systolic 100–128; BP diastolic 65–69; PULSE 75–89; RESP 18–20; Ht 157.5 cm; Wt 64.8 kg
[~2017-04-20] VITALS: Ht 157.5 cm; Wt 64.8 kg
[2017-04-20] MEDS ORDERED: TERBUTALINE 1 MG/ML INJ SC ONE (11:30)
[2017-04-20] MEDS ORDERED: LACTATED RINGER'S 1,000 ML IV* SCH (11:30)
--- NOTE | 2017-04-20 11:38 | RADRPT ---
PROCEDURE: OB ultrasound for biophysical profile CLINICAL INDICATION: labor TECHNIQUE: Multiple sonographic images of the pelvis were obtained. Transabdominal views of the g ravid uterus are available for review. The images were reviewed on a PACS workstation. COMPARISON: Biophysical profile dated 04/06/2017 FINDINGS: breathing movement = 2/2 tone = 2/2 motion = 2/2 JESSI = 2/2 JESSI = 19.5 cm Single live intrauterine with cardiac activity of 131 bpm. position is cephal ic. The placenta is fundal. IMPRESSION: 1. Single live intrauterine gestation. 2. Biophysical profile = 05/30. 3. JESSI = 19.5 cm. RPTAT: HH .Malena Hutchinson MD, Date Time Electronically viewed and signed by .Malena Hutchinson MD, on 04/20/2017 11:37 .G/
[2017-04-20] MEDS ORDERED: LACTATED RINGER'S 1,000 ML IV SCH (12:39)
--- NOTE | 2017-04-20 12:40 | TRIAGE ---
OB Triage Datetime Report Generated by CPN: 04/20/2017 12:39 Datetime: 04/20/2017 12:30 Stage of : OB Triage Maternal Assessment Level of Consciousness: Fully Conscious Labor Evaluation Frequency: 2-4 Monitor Mode: External Duration (sec)2399: 80-120 Quality: Moderate Resting Tone [place]: Relaxed Heart Rate FHR Baseline Rate: 135 Monitor Mode: External US Variability: Moderate 6-25 bpm Accelerations: 15X15 Decelerations: None Pain Assessment Pain Scale: 6 Pain Presence: Intermittent Pain Type: Cramping Pain Location: Abdomen Pain Goal: 4 Pain Relief Measures: Comfort Measures Vaginal Exam Membrane Status: Intact Vaginal Bleeding: None Datetime: 04/20/2017 12:00 Stage of : OB Triage Maternal Assessment Level of Consciousness: Fully Conscious Labor Evaluation Frequency: OCASIONAL Monitor Mode: External Duration (sec)2399: 80-110 Quality: Moderate Resting Tone [place]: Relaxed Heart Rate FHR Baseline Rate: 135 Monitor Mode: External US Variability: Moderate 6-25 bpm Accelerations: 15X15 Decelerations: None Pain Assessment Pain Scale: 6 Pain Presence: Intermittent Pain Type: Cramping Pain Location: Abdomen Pain Goal: 4 Pain Relief Measures: Comfort Measures Vaginal Exam Membrane Status: Intact Vaginal Bleeding: None Datetime: 04/20/2017 11:30 Stage of : OB Triage Maternal Assessment Level of Consciousness: Fully Conscious Labor Evaluation Frequency: 2-6 Monitor Mode: External Duration (sec)2399: 60-110 Quality: Moderate Resting Tone [place]: Relaxed Heart Rate FHR Baseline Rate: 135 Monitor Mode: External US Variability: Moderate 6-25 bpm Accelerations: 15X15 Decelerations: None Category: Category I Pain Assessment Pain Scale: 6 Pain Presence: Intermittent Pain Type: Cramping Pain Location: Abdomen Pain Goal: 4 Pain Relief Measures: Comfort Measures Vaginal Exam Membrane Status: Intact Vaginal Bleeding: None Datetime: 04/20/2017 11:04 Assessment Type: Triage Maternal Assessment Level of Consciousness: Fully Conscious DTR's/Clonus: DTRs 2+; No Clonus Headache: Denies Blurred Vision: No Respiratory Effort: Unlabored; Regular Rhythm; Equal Expansion Breath Sounds, Left: Clear and Equal Breath Sounds, Right: Clear and Equal Nausea/Vomiting: Denies RUQ Epigastric Pain: Denies Lower Extremities Edema: None Degree: None Upper Extremities Edema: None Degree: None Facial Edema: None Fall Risk Assessment History of Falling: (0) No Secondary Diagnosis: (0) No Ambulatory Aid: (0) Bedrest/Nurse Assist IV Therapy: (0) No Gait: (0) Normal/Bedrest/Immobile Mental Status: (0) Oriented to Own Ability Fall Score: 0 Fall Risk Score Definition: No Risk: No action required Datetime: 04/20/2017 10:58 Monitor Mode: External Monitor Mode: External US Datetime: 04/20/2017 10:53 Time of Arrival: 04/20/2017 10:46 EGA: 36.1 Arrived By: Ambulatory Arrived From: Home Chief Complaint: C/O UC'S SINCE 399 Movement: Present Contractions: Irregular Rupture of Membranes: Denies Vaginal Bleeding: None Vaginal Discharge: Denies Recent Sexual Intercouse: Denies Abdominal Trauma: Not Applicable Patient Complaints: Contractions; Cramping; Back Pain Time Provider Notified: 04/20/2017 10:50 Provider Notified: [facility] Initial Plan: BPP/NST/SVE/IV HYDRATION Datetime: 04/12/2017 18:40 Fall Score: 0 Fall Risk Score Definition: No Risk: No action required Datetime: 04/12/2017 18:38 EGA: 35.0 Datetime: 04/07/2017 18:56 EGA: 34.2 Datetime: 04/07/2017 18:51 Fall Score: 0 Fall Risk Score Definition: No Risk: No action required Datetime: 04/06/2017 10:53 EGA: 34.1 Datetime: 03/10/2017 21:16 EGA: 30.2 Datetime: 01/07/2017 20:33 Fall Score: 15 Fall Risk Score Definition: No Risk: No action required Datetime: 01/07/2017 20:20 EGA: 21.3
[2017-04-20] MEDS ORDERED: CARBOPROST 250 MCG INJ IM PRN ×2 (13:00→20:30)
[2017-04-20] MEDS ORDERED: OXYTOCIN 30 UNITS/LR 500 ML IV PRN ×2 (13:00→20:30)
[2017-04-20] MEDS ORDERED: CEFAZOLIN 2 GM/50 ML (PMX) 50 ML IV SCH (13:00)
[2017-04-20] MEDS ORDERED: METHYLERGONOVINE 0.2 MG INJ IM PRN ×2 (13:00→20:30)
[2017-04-20] MEDS ORDERED: MISOPROSTOL 200 MCG TAB PR PRN ×2 (13:00→20:30)
[2017-04-20] MEDS ORDERED: OXYTOCIN 30 UNITS/LR 500 ML IV SCH (13:00)
[2017-04-20 13:38] LABS: BASOPHIL # 0.1 10^3/ul (0.0-0.1); BASOPHILS % 0.6 % (0.0-2.0); EOSINOPHILS # 0.2 10^3/ul (0.0-0.5); EOSINOPHILS % 2.3 % (0.0-7.0); HEMATOCRIT 37.4 % (37.0-47.0); LYMPHOCYTES % 19.4 % (15.0-51.0); MEAN CORPUSCULAR HEMOGLOBIN 32.3 pg (29.0-33.0); MEAN CORPUSCULAR HGB CONC 34.8 g/dl (32.0-37.0); MEAN CORPUSCULAR VOLUME 92.8 fl (82.0-101.0); MEAN PLATELET VOLUME 9.9 fl (7.4-10.4); MONOCYTE # 0.6 10^3/ul (0.3-0.9); MONOCYTES % 6.1 % (0.0-11.0); NEUTROPHIL # 7.2 10^3/ul (1.6-7.5); NEUTROPHILS % 70.4 % (39.0-77.0); PLATELET COUNT 290 10^3/UL (140-415); RED BLOOD COUNT 4.03 10^6/ul (4.20-5.40); RED CELL DISTRIBUTION WIDTH 13.1 % (11.5-14.5); WHITE BLOOD COUNT 10.2 10^3/ul (4.8-10.8)
[2017-04-20 13:45] LABS: ADD SCAN DIFF NO
[2017-04-20 13:56] LABS: INR 0.97; PROTIME 12.9 Sec (12.2-14.2)
[2017-04-20 13:57] LABS: PARTIAL THROMBOPLASTIN TIME 27.1 Sec (25.0-35.0)
[2017-04-20] MEDS ORDERED: morphine SULFATE/PF (10 MG/10 ML) INJ ONE (15:31)
[2017-04-20] MEDS ORDERED: FENTAnyl 50 MCG/ML VIAL ONE (15:31)
[2017-04-20] MEDS ORDERED: OXYTOCIN 30 UNITS/LR 500 ML IV ONE (15:41)
[2017-04-20] MEDS ORDERED: PHENYLephrine (100 MCG/ML) 5ML SYG ONE (15:42)
--- NOTE | 2017-04-20 15:47 | HP ---
Date/Time of Note Date/Time of Note DATE: 04/20/17 TIME: 15:37 OB - History Hx of Present Free Text/Dictation 26 years old female 3 para 2 history of 2 previous with EDC May 17, 2017 admitted to [facility] with contraction 4-6 minutes apart trial of tocolytic medication(terbutaline) slowed down the contraction for a short period then contraction return to every 3-5 minutes with more severe intensity therefore she is being prepared to undergo repeat for the third time. This patient has been under the care of the [facility] and her was not complicated with gestational diabetes - induced hypertension or any other surgical or medical conditions [employer] history Stella at age 12 history of regular. To previous pregnancies with section no other hospitalization for medical or surgical condition reported in the patient's record Chief Complaint: Labor pain Estimated Due Date: Apr 17, 2017 : 3 Para: 2 Care: Good Care Ultrasounds: Normal mid trimester US Obstetrical Complications: None Medical Complications: None Past Family/Social History * Past Medical, Surgical, Family and Obstetric Histories reviewed from chart. Rubella: immune RPR/VDRL: Negative GBS Status: Negative HBsAG: Negative OB Admission Exam Vital Signs Vital Signs Vital Signs Date Time Temp Pulse Resp B/P Pulse Ox O2 Delivery O2 Flow Rate FiO2 04/20/17 11:09 98.2 87 18 128/69 98 Room Air Physical Exam HEENT: WNL Heart: Rhythm Normal Lungs: Clear, Equal Abdomen: WNL Extremities: Normal Reflexes: Normal Cervical Dilatation: None Effacement: 0% Heart Rate: 130's Accelerations: Accelerations Present Decelerations: No Decelerations Varibility: Moderate Contractions on Admission: < 5 Minutes Apart Intensity: Firm Last 72 hours Lab Results CBC & BMP 04/20/17 11:22 OB Assessment/Plan Reason for admission: other (36 weeks 2 previous section in labor) Plan: Other (36 weeks previous in labor) VENUS SURESH MD Apr 20, 2017 15:47
--- NOTE | 2017-04-20 16:51 | OPR ---
Operative Report Planned Procedure Free Text/Dictation 26 years old female 3 para 2 history of 2 previous section admitted to [facility] at 36 weeks gestation EDC of May 17, 2017 in active labor trial of topical lysis unsuccessful ,repeat C- section #3 Procedure date Apr 20, 2017 Procedure(s) Repeat #3- Performed by: VENUS SURESH MD Assisting provider: AL BROWNLEE MD Anesthesiologist: RAMON PANTOJA Pre-procedure diagnosis 36 weeks history of 2 previous section in active labor Anesthesia Type: spinal Procedure Description Under satisfactory spinal [] anesthesia, the patient was prepped and draped and placed in a supine position, tilted to the left. Pfannenstiel incision was made , carried through the subcutaneous tissue. Bleeders brought under control with electrocautery. Fascia incised to the length of the incision. Rectus muscles from the fascia, divided midline. Peritoneum exposed, entered through a transverse incision. Exploration of abdomen revealed gravid uterus at term normal-appearing tubes and ovaries. Bladder flap was developed. Transverse incision was made in the lower segment of the uterus. Amniotic sac ruptured. Clear [] amniotic fluid noted. [] Nasal oropharyngeal suction was performed. The baby was handed to the team for immediate attention. Patient received 20 units of Pitocin the placenta was delivered manually intact. Uterine cavity cleaned with wet sponge and drainage established. Uterus closed in 2 layers using [#1 Monocryl] in continuous fashion. Peritoneal cavity irrigated with warm saline. Sponge, needle and instrument count reported to be correct. Abdominal peritoneum closed with 2-0 chromic catgut [] continuously. Rectus muscle approximated with [3 interrupted 2-0 chromic catgut]. Fascia closed with [0 PDS], and skin closed with yue. Estimated blood loss [600 mL. Urine bag contained 200 []mL of clear urine Post-Procedure Post-procedure diagnosis 36 weeks 2 previous section in active labor Findings: Live Baby [girl], Apgars 8 [] and [8], weight [], position occiput posterior [] , [vertex] presentation short []cord. Complications: None Pt Condition post procedure: stable Physician Certification I, the undersigned physician, hereby certify that I have discussed the procedure described in this consent form with this patient (or the patient's legal public utilities sales representative), including: * The risk and benefits of the procedure; * Any adverse reactions that may reasonably be expected to occur; * Any alternative efficacious methods of treatment which may be medically viable ; * The potential problems that may occur during recuperation; * Potential for blood transfusion and associated risks/benefits; and * Any research or economic interest I may have regarding this treatment. I further certify that the patient/legally responsible person was encouraged to ask question and that all questions were answered. VENUS SURESH MD Apr 20, 2017 16:50
[2017-04-20] MEDS ORDERED: ONDANSETRON 4 MG INJ IV PRN (18:00)
[2017-04-20] MEDS ORDERED: NALOXONE (0.4 MG/ML) INJ IV PRN (18:00)
[2017-04-20] MEDS ORDERED: ZOLPIDEM 5 MG TAB PO PRN (18:00)
[2017-04-20] MEDS ORDERED: HYDROmorphONE 1 MG/ML SYG IV PRN ×2 (18:00)
[2017-04-20] MEDS ORDERED: DIPHENHYDRAMINE 50 MG INJ IV PRN (18:00)
[2017-04-20] MEDS: KETOROLAC 30 MG INJ IV PRN (18:10)
[2017-04-20] MEDS ORDERED: CEFAZOLIN 1 GM/50 ML (PMX) 50 ML IVPB SCH (20:30)
[2017-04-20] MEDS ORDERED: OXYCODONE/ACETAMINOPHEN (5/325) TAB PO PRN (20:30)
[2017-04-20] MEDS ORDERED: LANOLIN 7 GM TUBE TOP PRN (20:30)
[2017-04-20] MEDS ORDERED: ACETAMINOPHEN/CODEINE #3 TAB PO PRN ×2 (20:30)
[2017-04-20] MEDS: IBUPROFEN 600 MG TAB PO SCH (20:30)
[2017-04-20] MEDS: SENNA/DOCUSATE NA (8.6MG/50MG) TAB PO SCH (21:00)
[2017-04-21] VITALS: BP 102/66; PULSE 82
[2017-04-21] MEDS: OXYTOCIN 30 UNITS/LR 500 ML IV SCH ×4 (00:27→08:29)
[2017-04-21 04:00] VITALS: BP 105/65; PULSE 83
[2017-04-21] MEDS: IBUPROFEN 600 MG TAB PO SCH ×4 (06:00→18:53)
[2017-04-21 08:00] VITALS: BP 114/71; RESP 18
[2017-04-21 08:11] LABS: BASOPHILS % 0.3 % (0.0-2.0); EOSINOPHILS # 0.1 10^3/ul (0.0-0.5); EOSINOPHILS % 1.1 % (0.0-7.0); HEMATOCRIT 35.8 % (37.0-47.0); HEMOGLOBIN 12.2 g/dl (12.0-16.0); LYMPHOCYTES # 1.7 10^3/ul (0.8-2.9); LYMPHOCYTES % 15.1 % (15.0-51.0); MEAN CORPUSCULAR HEMOGLOBIN 31.5 pg (29.0-33.0); MEAN CORPUSCULAR HGB CONC 34.1 g/dl (32.0-37.0); MEAN CORPUSCULAR VOLUME 92.5 fl (82.0-101.0); MEAN PLATELET VOLUME 9.8 fl (7.4-10.4); MONOCYTE # 0.9 10^3/ul (0.3-0.9); MONOCYTES % 8.1 % (0.0-11.0); NEUTROPHIL # 8.6 10^3/ul (1.6-7.5); NEUTROPHILS % 74.8 % (39.0-77.0); PLATELET COUNT 256 10^3/UL (140-415); RED BLOOD COUNT 3.87 10^6/ul (4.20-5.40); RED CELL DISTRIBUTION WIDTH 13.2 % (11.5-14.5); WHITE BLOOD COUNT 11.5 10^3/ul (4.8-10.8)
[2017-04-21 08:15] LABS: ADD SCAN DIFF NO
[2017-04-21] MEDS: KETOROLAC 30 MG INJ IV PRN ×2 (08:48→14:44)
[2017-04-21] MEDS: SENNA/DOCUSATE NA (8.6MG/50MG) TAB PO SCH ×2 (08:48→20:35)
[2017-04-21] MEDS: LACTATED RINGER'S 1,000 ML IV SCH ×2 (08:51→17:00)
[2017-04-21 12:20] VITALS: BP 114/75; PULSE 87; RESP 18
[2017-04-21 15:30] VITALS: BP 112/72; PULSE 82; RESP 18
--- NOTE | 2017-04-21 16:19 | PN ---
Date/Time of Note Date/Time of Note DATE: 04/21/17 TIME: 16:17 OB Subjective Subjective Subjective Post day 1 Afebrile vital signs stable abdomen weak bowel sounds , incision dry ambulation encouraged lochia moderate extremity normal VENUS SURESH MD Apr 21, 2017 16:19
[2017-04-21 19:40] VITALS: BP 105/67; PULSE 74; RESP 19
[2017-04-22] MEDS: IBUPROFEN 600 MG TAB PO SCH ×4 (00:12→17:34)
[2017-04-22] MEDS: LACTATED RINGER'S 1,000 ML IV SCH (01:00)
[2017-04-22] MEDS: SENNA/DOCUSATE NA (8.6MG/50MG) TAB PO SCH ×2 (07:59→22:21)
[2017-04-22] MEDS: OXYCODONE/ACETAMINOPHEN (5/325) TAB PO PRN ×2 (07:59→17:34)
[2017-04-22 08:00] VITALS: BP 111/67; RESP 18
--- NOTE | 2017-04-22 13:38 | PN ---
Date/Time of Note Date/Time of Note DATE: 04/22/17 TIME: 13:36 OB Subjective Subjective Subjective Post day 2 Abdomen soft uterus firm lochia normal incision dry good bowel sounds no bowel movement extremities normal ambulation encouraged enema ordered VENUS SURESH MD Apr 22, 2017 13:38
[2017-04-22] MEDS ORDERED: NA PHOSPHATE/BIPHOS 133 ML ENEMA PR ONE (14:00)
[2017-04-22 15:40] VITALS: BP 126/67; PULSE 83; RESP 18
[2017-04-23] MEDS: IBUPROFEN 600 MG TAB PO SCH ×4 (00:50→18:00)
[2017-04-23 04:21] VITALS: BP 127/83; PULSE 76; RESP 20
[2017-04-23 08:47] VITALS: BP 109/65; PULSE 74; RESP 16
[2017-04-23] MEDS: SENNA/DOCUSATE NA (8.6MG/50MG) TAB PO SCH (08:48)
--- NOTE | 2017-04-23 08:57 | DS ---
Date/Time of Note Date/Time of Note DATE: 04/23/17 TIME: 08:53 Obstetrical Discharge Record Final Diagnosis Final Diagnosis: delivered Other Final Diagnosis patient with h/o c/s x 2 in past presented in labor at 36 weeks Section Section: Repeat Complications Augmentation: No Induction: No Tocolytics: Magnesium Sulfate Rupture of Membranes: No Condition on Discharge Physical Assessment Voiding: Yes Bowel Movement: Yes Breast: Soft, non-tender, Filling Fundus: Firm Abdomen and Incision: soft, appropriate tenderness Incision: clean and dry and intact with yue Calf Tenderness: No Patient Condition: Good RUBIA OJEDA MD Apr 23, 2017 08:57
[2017-04-23] MEDS ORDERED: DIPHTH/TET/ACEL PERTUSS (ADULT) 0.5 ML VIAL IM* ONE (09:00)
--- NOTE | 2017-04-23 11:33 | OPPN ---
Date/Time of Note Date/Time of Note DATE: 04/23/17 TIME: 11:33 Anesthesia Follow up Anesthesia Follow up Last documented vital signs Vital Signs Date Time Temp Pulse Resp B/P Pulse Ox O2 Delivery O2 Flow Rate FiO2 04/23/17 08:47 98.2 74 16 109/65 Room Air 04/21/17 04:36 98 21 Respiratory function: WNL Cardiovascular function: WNL Comments satisfactory recovery from anesthesia RAMON PANTOJA Apr 23, 2017 11:33
[2017-04-23 16:14] VITALS: BP 106/67; PULSE 78; RESP 16
== END 2017-04-23 18:20 | disposition home or self-care (01) | DRG 766 ==
LOC: OBT 10:49 → L-D 10:51 → OBT 12:40 → L-D 12:40 → PP1 19:54
PROVIDERS: ADMIT Obstetrics & Gynecology; ATTEND Obstetrics & Gynecology
PROC: 10D00Z1 Extraction of Products of Conception, Low, Open Approach (ICD-10-PCS; principal; 2017-04-20 15:30)
DX: O60.14X0 Preterm labor third trimester with preterm delivery third trimester, not applicable or unspecified (principal); O34.211 Maternal care for low transverse scar from previous cesarean delivery; Z3A.36 36 weeks gestation of pregnancy; Z37.0 Single live birth
CPT/HCPCS: 36415; 76818; 85025; 85610; 85730; 86592; 86850; 86900; 86901; 87340; 90715; 94760; 96360; 96372; 99464; G0463; J0690; J1885; J2274; J2370; J2590; J3010; J3105; J7120

== ENCOUNTER 2017-06-03 17:44 | Emergency (ER) | payer MEDICAID ==
[~2017-06-03] VITALS: Ht 157.5 cm; Wt 56.5 kg
[~2017-06-03 17:44] MED LIST changes: -PROG100C5 VAGINAL
[2017-06-03 17:46] VITALS: Ht 157.5 cm; Wt 56.5 kg
[2017-06-03] MEDS ORDERED: IBUP400T22 PO (18:04)
[2017-06-03] MEDS ORDERED: NPH10OT RIGHT EAR (18:04)
--- NOTE | 2017-06-03 18:06 | ERD ---
ER Documentation Chief Complaint Date/Time DATE: 06/03/17 TIME: 18:05 Chief Complaint right ear pain x 3 days HPI This 26-year-old female complains of right ear pain for last 3 days. She is concerned she may have a piece of cotton from a broken Q-tip in her right ear. She denies fevers, congestion. She may have had a slight amount of discharge. ROS All systems reviewed and are negative except as per history of present illness. Medications Home Meds Active Scripts Ibuprofen* (Motrin*) 400 Mg Tab, 400 MG PO Q6, #15 TAB Prov:LEXA REIS MD 06/03/17 Neomycin/Polymyxin/Hydrocort* (Cortisporin* Otic) 10 Ml Susp, 4 DROP RIGHT EAR QID for 7 Days, EA Prov:LEXA REIS MD 06/03/17 Reported Medications Multivit/Min/Fol Ac/Iron/Pren* ( S*) 1 Tab Tab, 1 TAB PO DAILY, TAB 01/07/17 Allergies Allergies: Coded Allergies: No Known Allergy (Unverified , 04/06/17) PMhx/Soc History of Surgery: No Anesthesia Reaction: No Hx Neurological Disorder: No Hx Respiratory Disorders: No Hx Cardiac Disorders: No Hx Psychiatric Problems: No Hx Miscellaneous Medical Probl: No Hx Alcohol Use: No Hx Substance Use: No Hx Tobacco Use: No Smoking Status: Never smoker Physical Exam Vitals Vital Signs Date Time Temp Pulse Resp B/P Pulse Ox O2 Delivery O2 Flow Rate FiO2 06/03/17 17:46 98.7 75 18 121/78 99 Physical Exam Const: [] Alert, [id number] Head: Atraumatic Eyes: Normal Conjunctiva ENT: Normal External Ears, Nose and Mouth. Slightly tender in the right external auditory canal is possible slight irritation. TMs normal. No mastoid tenderness. No foreign body appreciated. Neck: Full range of motion..~ No meningismus. Resp: Clear to auscultation bilaterally Cardio: Regular rate and rhythm, no murmurs Abd: Soft, non tender, non distended. Normal bowel sounds Skin: No petechiae or rashes Back: No midline or flank tenderness Ext: No cyanosis, or edema Neur: Awake and alert Psych: Normal Mood and Affect Procedures/MDM Patient presents with right ear pain and signs of possible mild otitis externa. She will treated with Cortisporin and ibuprofen. The patient was stable with no new complaints during the ER course. Clinically, there is no current evidence to suggest meningitis, sepsis, acute abdomen, pneumonia, acute coronary syndrome, pulmonary embolism, or any other emergent condition appearing to require further evaluation or hospitalization. The patient should certainly return for any new or worsening symptoms per the aftercare instructions. They should otherwise follow-up with her primary care doctor for reevaluation this week. Departure Diagnosis: Primary Impression: Right ear pain Condition: Stable Patient Instructions: External Ear Infection (Adult) Additional Instructions: Cheque otro vez con hopkins doctor primario en el proximo sotelo or regresa para mas o nueva simptomas. LEXA REIS MD Jun 03, 2017 18:06
== END 2017-06-03 18:16 | disposition home or self-care (01) ==
LOC: FTE 17:44
DX: H92.01 Otalgia, right ear (principal)
CPT/HCPCS: 99283

== ENCOUNTER 2017-08-08 08:34 | Emergency (ER) | payer MEDICAID ==
[~2017-08-08] VITALS: Wt 56.0 kg
[~2017-08-08 08:34] MED LIST changes: +IBUP400T22 PO; +NPH10OT RIGHT EAR
[2017-08-08] MEDS ORDERED: IBUPROFEN 800 MG TAB PO ONE (09:30)
[2017-08-08] MEDS ORDERED: IBUP800T25 PO (09:35)
--- NOTE | 2017-08-08 09:45 | ERD ---
ER Documentation Chief Complaint Date/Time DATE: 08/08/17 TIME: 09:42 Chief Complaint foreign object on right ear, reports pain HPI project engineer was used. This is a pleasant 27-year-old female who presents with right ear and jaw pain for several months since May. She states that in May she was seen in the used a Q-tip in her ear. She is concerned that that may have caused an injury. She states since then she has had intermittent pain to the right jaw that is occasionally worse with chewing. She states that she can hear herself swallowing. She denies any fevers or chills. She notes that the symptoms been worse over the past 2 days when she does develop a sore throat and URI symptoms similar to her daughter. She denies any hearing loss, fevers, headache or difficulty swallowing. ROS All systems reviewed and are negative except as per history of present illness. Medications Home Meds Active Scripts Ibuprofen* (Motrin*) 800 Mg Tab, 800 MG PO Q6H Y for PAIN AND OR ELEVATED TEMP, #30 TAB Prov:RENU BAEZ MD 08/08/17 Ibuprofen* (Motrin*) 400 Mg Tab, 400 MG PO Q6, #15 TAB Prov:LEXA REIS MD 06/03/17 Neomycin/Polymyxin/Hydrocort* (Cortisporin* Otic) 10 Ml Susp, 4 DROP RIGHT EAR QID for 7 Days, EA Prov:LEXA REIS MD 06/03/17 Reported Medications Multivit/Min/Fol Ac/Iron/Pren* ( S*) 1 Tab Tab, 1 TAB PO DAILY, TAB 01/07/17 Allergies Allergies: Coded Allergies: No Known Allergy (Unverified , 08/08/17) PMhx/Soc Medical and Surgical Hx: pt denies Medical Hx, pt denies Surgical Hx History of Surgery: No Anesthesia Reaction: No Hx Neurological Disorder: No Hx Respiratory Disorders: No Hx Cardiac Disorders: No Hx Psychiatric Problems: No Hx Miscellaneous Medical Probl: No Hx Alcohol Use: No Hx Substance Use: No Hx Tobacco Use: No Smoking Status: Never smoker FmHx Family History: No diabetes Physical Exam Vitals Vital Signs Date Time Temp Pulse Resp B/P Pulse Ox O2 Delivery O2 Flow Rate FiO2 08/08/17 08:38 98.5 81 17 128/70 99 Physical Exam General: Well developed, well nourished, no acute distress Head: Normocephalic, atraumatic Eyes: Pupils equally reactive, EOM intact ENT: Moist mucous membranes, bilateral tympanic membranes are nonbulging and nonerythematous without evidence of perforation, no evidence of foreign body in the right ear canal, pinna of the right side is without tenderness. Mild tenderness along the TMJ of the right jaw with normal jaw opening and closing, normal dentition, Neck: Supple, no lymphadenopathy Respiratory: Lungs clear bilaterally, no distress Cardiovascular: RRR, no murmurs, rubs, or gallops Abdominal: Soft, non-tender, non-distended, no peritoneal signs : Deferred MSK: No edema, no unilateral swelling, 5/5 strength Neurologic: Alert and oriented, moving all extremities, normal speech, no focal weakness, no cerebellar signs Skin: No rash Psych: Normal mood Results 24 hrs Current Medications Medications (Trade) Dose Ordered Sig/Navdeep Route PRN Reason Start Time Stop Time Status Last Admin Dose Admin Ibuprofen (Motrin) 800 mg ONCE ONCE PO 08/08/17 09:30 08/08/17 09:31 DC 08/08/17 09:31 Procedures/MDM The patient presents with right ear pain and jaw pain on and off for several months. The patient's tympanic membrane is normal size without evidence of perforation or infection or serous effusion. The patient's symptoms may be more related to TMJ syndrome given it is associated with jaw opening and closing in eating. She has soft tissue of the neck and no difficulty swallowing , no evidence of mass or deep space infection. I do not believe the diagnostic imaging is necessary at this time. I believe a trial of NSAIDs would be most appropriate. She does seem to have exacerbation of symptoms over the past 48 hours which may be related to a URI. The patient will be given referral information to [facility] as if symptoms do not improve ENT investigation and evaluation would be most appropriate. Answers were given to her questions and the patient was given Motrin. We discussed follow up with the patient's primary care doctor within 24 to 48 hours as needed. We also discussed return to the emergency room for worsening symptoms or worsening condition. Outpatient referral: ENT Discharge Medications: Motrin Departure Diagnosis: Primary Impression: Right ear pain Condition: Stable Patient Instructions: Earache W/O Infection (Adult), Tmj Syndrome Referrals: [facility] Usted se jose hecho un examen mdico de control que le indica que no est en trang condicin que requiera tratamiento urgente en el Departamento de Emergencia. Un estudio ms profundo y el tratamiento de hopkins condicin pueden esperar sin ningn riesgo hasta que usted sea atendida/o en el consultorio de hopkins mdico o trang cl rei. Es responsabilidad suya arreglar trang basia para el seguimiento del iban. MANEJO DE CONDICIONES NO URGENTES EN EL FUTURO 1) Si usted tiene un mdico de atencin primaria: Usted debera llamar a hopkins mdico de atencin primaria antes de venir al departamento de emergencia. Despus de las horas de consultorio, hopkins doctor o hopkins asociado/a est disponible por telfono. El mdico o enfermero de ronnell en el servicio telefnico puede asesorarle por josef medio para atender el problema, o iban contrario se puede programar trang basia. 2) Si usted no tiene un mdico de atencin primaria: Llame al mdico o clnica de referencia que aparece abajo reza las horas de consultorio para hacer trang basia para que le vean. CLINICAS: [facility] [phone] [address] [facility] [phone] [address] [facility] [phone] [address] [facility] [phone] [address] [facility] [phone] [address] [facility]. [phone] [address] [facility] () Usted se jose hecho un examen mdico de control que le indica que no est en trang condicin que requiera tratamiento urgente en el Departamento de Emergencia. Un estudio ms profundo y el tratamiento de hopkins condicin pueden esperar sin ningn riesgo hasta que usted sea atendida/o en el consultorio de hopkins mdico o trang cl rei. Es responsabilidad suya arreglar trang basia para el seguimiento del iban. MANEJO DE CONDICIONES NO URGENTES EN EL FUTURO 1) Si usted tiene un mdico de atencin primaria: Usted debera llamar a hopkins mdico de atencin primaria antes de venir al departamento de emergencia. Despus de las horas de consultorio, hopkins doctor o hopkins asociado/a est disponible por telfono. El mdico o enfermero de ronnell en el servicio telefnico puede asesorarle por josef medio para atender el problema, o iban contrario se puede programar trang basia. 2) Si usted no tiene un mdico de atencin primaria: Llame al mdico o condado institucions de referencia que aparece abajo reza las horas de consultorio para hacer trang basia para que le vean. SI USTED NO PUEDE PAGAR PARA CELIA UN MEDICO puede ir a: [facility] [address] [place] [address] [facility] [address] [place] [address] [facility] [address] [place] [address] PARA [facility]O [facility] [address] [place], [place] [id number] Additional Instructions: Llame al doctor nombrado abajo (Referral Sources) MAANA y elijah trang BASIA PARA DENTRO DE TRANG SEMANA. Dgale a la secretaria que nosotros le instruimos hacer esta basia.Avise o llame si hopkins condicin se empeora antes de la basia. RENU BAEZ MD Aug 08, 2017 09:45
== END 2017-08-08 09:50 | disposition home or self-care (01) ==
LOC: FTE 08:34
DX: H92.01 Otalgia, right ear (principal)
CPT/HCPCS: Z7502; Z7610; 99283